=== PATIENT | female | born 1995 ===

== ENCOUNTER 2022-10-23 14:44 | Outpatient (CLI) | payer OTHER | END 2022-10-23 16:45 | disposition home or self-care (01) | LOC: PRENATAL 14:44 | PROVIDERS: ATTEND Obstetrics & Gynecology Maternal & Fetal Medicine | DX: O36.5990 Maternal care for other known or suspected poor fetal growth, unspecified trimester, not applicable or unspecified (principal); O26.849 Uterine size-date discrepancy, unspecified trimester; Z3A.32 32 weeks gestation of pregnancy ==

== ENCOUNTER 2022-10-30 10:09 | Outpatient (CLI) | payer OTHER | END 2022-10-30 12:17 | disposition home or self-care (01) | LOC: PRENATAL 10:09 | PROVIDERS: ATTEND Obstetrics & Gynecology Maternal & Fetal Medicine | DX: O36.8199 Decreased fetal movements, unspecified trimester, other fetus (principal); O36.5990 Maternal care for other known or suspected poor fetal growth, unspecified trimester, not applicable or unspecified; Z3A.33 33 weeks gestation of pregnancy ==

== ENCOUNTER 2022-11-06 09:58 | Outpatient (CLI) | payer OTHER | END 2022-11-06 11:45 | disposition home or self-care (01) | LOC: PRENATAL 09:58 | PROVIDERS: ATTEND Obstetrics & Gynecology Maternal & Fetal Medicine | DX: O36.8199 Decreased fetal movements, unspecified trimester, other fetus (principal); Z3A.34 34 weeks gestation of pregnancy ==

== ENCOUNTER 2022-11-13 10:19 | Outpatient (CLI) | payer OTHER | END 2022-11-13 11:50 | disposition home or self-care (01) | LOC: PRENATAL 10:19 | PROVIDERS: ATTEND Obstetrics & Gynecology Maternal & Fetal Medicine | DX: O26.849 Uterine size-date discrepancy, unspecified trimester (principal); O36.8990 Maternal care for other specified fetal problems, unspecified trimester, not applicable or unspecified; O36.8199 Decreased fetal movements, unspecified trimester, other fetus; Z3A.35 35 weeks gestation of pregnancy ==

== ENCOUNTER 2022-12-02 04:28 | Inpatient (IN) | payer OTHER ==
[~2022-12-02] VITALS: Ht 160 cm; Wt 68.0 kg
[2022-12-02] MEDS ORDERED: PRENATABS RX T1 EACH PO (05:25)
== END 2022-12-04 10:10 | disposition home or self-care (01) | DRG 807 ==
LOC: OB/GYN 04:28 → LDR 04:28 → OB/GYN 13:28
PROVIDERS: ADMIT Obstetrics & Gynecology; ATTEND Obstetrics & Gynecology
PROC: 10E0XZZ Delivery of Products of Conception, External Approach (ICD-10-PCS; principal; 2022-12-02)
PROC: 4A1HXCZ Monitoring of Products of Conception, Cardiac Rate, External Approach (ICD-10-PCS; 2022-12-02)
DX: O36.5930 Maternal care for other known or suspected poor fetal growth, third trimester, not applicable or unspecified (principal); Z37.0 Single live birth; Z3A.38 38 weeks gestation of pregnancy; Z20.822 Contact with and (suspected) exposure to COVID-19

== ENCOUNTER 2024-04-12 15:31 | Outpatient (CLI) | payer OTHER ==
[~2024-04-12 15:31] MED LIST: PRENATABS RX T1 EACH PO
== END 2024-04-12 15:34 | disposition home or self-care (01) ==
LOC: PRENATAL 15:31
PROVIDERS: ATTEND Obstetrics & Gynecology Maternal & Fetal Medicine
DX: O35.9XX0 Maternal care for (suspected) fetal abnormality and damage, unspecified, not applicable or unspecified (principal); O35.3XX0 Maternal care for (suspected) damage to fetus from viral disease in mother, not applicable or unspecified; O44.02 Complete placenta previa NOS or without hemorrhage, second trimester; Z3A.19 19 weeks gestation of pregnancy